=== PATIENT | male | born 1985 | race African-American/Black ===

== ENCOUNTER 2017-05-23 04:48 | Emergency (ER) | payer BC, OTHER ==
[~2017-05-23] VITALS: Ht 177.8 cm; Wt 86.2 kg
[2017-05-23] MEDS ORDERED: IV NORMAL SALINE 1000 ML BAG IV ONE (05:00)
[2017-05-23] MEDS ORDERED: KETOROLAC TROMETHAMINE 15 MG INJ IV ONE (05:00)
[2017-05-23] MEDS ORDERED: ONDANSETRON 4 MG/2 ML VIAL IV ONE (05:00)
[2017-05-23 05:19] LABS: BASOPHILS # (AUTO) 0.1 K/uL (0.0-8.0); BASOPHILS % (AUTO) 1.5 % (0.0-2.0); EOSINOPHILS % (AUTO) 0.4 % (0.0-7.0); HEMATOCRIT 47.2 % (40-50); HEMOGLOBIN 16.4 G/DL (14.0-18.0); MEAN CORPUSCULAR HEMOGLOBIN 31.8 UUG (27.0-31.0); MEAN CORPUSCULAR HGB CONC 35 g/dL (32.0-37.0); MEAN CORPUSCULAR VOLUME 91.8 FL (82.0-92.0); MONOCYTES # (AUTO) 0.4 K/UL (0.1-1.30); MONOCYTES % (AUTO) 4.8 % (0.0-11.0); NEUTROPHILS # (AUTO) 6.6 K/UL (1.8-8.9); NEUTROPHILS % (AUTO) 71.3 % (38.5-71.5); PLATELET COUNT (AUTO) 188 K/UL (150-450); RED BLOOD CELL COUNT(AUTO) 5.14 MIL/UL (4.7-6.1); WHITE BLOOD COUNT (AUTO) 9.1 K/UL (4.0-11.2)
[2017-05-23] MEDS ORDERED: KETOROLAC TROMETHAMINE 30 MG INJ ONE (05:19)
[2017-05-23] MEDS ORDERED: ONDANSETRON 4 MG/2 ML VIAL ONE (05:19)
[2017-05-23 05:23] LABS: CREATININE 1.4 mg/dL (0.6-1.3); POTASSIUM 3.5 mmol/L (3.5-5.1)
[2017-05-23 05:30] LABS: BILIRUBIN,DIRECT 0.1 mg/dL (0.0-0.2); BILIRUBIN,TOTAL 0.4 mg/dL (0.2-1.0); TOTAL PROTEIN, SERUM 7.1 g/dL (6.4-8.2)
[2017-05-23 07:01] VITALS: BP 124/76
--- NOTE | 2017-05-23 07:01 | NUR ---
Patient discharged to home in stable conditon. Written and verbal after care instructions given. Patient verbalizes understanding of instructions.
== END 2017-05-23 07:02 | disposition home or self-care (01) ==
LOC: ER 04:51
DX: K85.90 Acute pancreatitis without necrosis or infection, unspecified (principal); F17.200 Nicotine dependence, unspecified, uncomplicated
CPT/HCPCS: 36415; 83690; 85025; A4663; J1885; J2405; J7030

== ENCOUNTER 2017-11-28 11:10 | Emergency (ER) | payer OTHER ==
[~2017-11-28] VITALS: Ht 180.3 cm; Wt 88.9 kg
[2017-11-28] MEDS ORDERED: KETOROLAC TROMETHAMINE 60 MG INJ IM ONE ×2 (12:15→12:20)
--- NOTE | 2017-11-28 13:54 | NUR ---
Pt states feeling better and wishes to be discharged.
--- NOTE | 2017-11-28 14:05 | NUR ---
Patient discharged to home in stable conditon. Written and verbal after care instructions given. Patient verbalizes understanding of instructions.
[2017-11-28 14:06] VITALS: BP 125/70
== END 2017-11-28 14:10 | disposition home or self-care (01) ==
LOC: ER 11:12
DX: S39.012A Strain of muscle, fascia and tendon of lower back, initial encounter (principal); F17.200 Nicotine dependence, unspecified, uncomplicated; X50.9XXA Other and unspecified overexertion or strenuous movements or postures, initial encounter; Y93.83 Activity, rough housing and horseplay; Y92.89 Other specified places as the place of occurrence of the external cause; Y99.8 Other external cause status
CPT/HCPCS: 72100; A4663; J1885

== ENCOUNTER 2017-12-04 10:35 | Emergency (ER) | payer SELFPAY ==
[~2017-12-04] VITALS: Ht 180.3 cm; Wt 88.5 kg
--- NOTE | 2017-12-04 10:39 | NUR ---
DR RODGERS AT THE BEDSIDE FOR MSE.
[2017-12-04 10:50] VITALS: BP 124/70
--- NOTE | 2017-12-04 10:50 | NUR ---
Patient discharged to home in stable conditon. Written and verbal after care instructions given. Patient verbalizes understanding of instructions.
== END 2017-12-04 10:51 | disposition home or self-care (01) ==
LOC: ER 10:35
DX: S39.012A Strain of muscle, fascia and tendon of lower back, initial encounter (principal); F17.210 Nicotine dependence, cigarettes, uncomplicated; X58.XXXA Exposure to other specified factors, initial encounter; Y93.89 Activity, other specified; Y92.89 Other specified places as the place of occurrence of the external cause; Y99.8 Other external cause status
CPT/HCPCS: 99281; A4663